=== PATIENT | female | born 1980 | race African-American/Black ===

== ENCOUNTER 2019-06-06 01:41 | Emergency (ER) | payer SELFPAY ==
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
[2019-06-06 05:18] VITALS: BP 132/68
== END 2019-06-06 04:30 | disposition home or self-care (01) ==
LOC: ER 01:41
DX: J45.909 Unspecified asthma, uncomplicated (principal); F41.9 Anxiety disorder, unspecified
CPT/HCPCS: 99283

== ENCOUNTER 2019-06-24 01:43 | Emergency (ER) | payer MEDICAID, OTHER ==
[2019-06-24] MEDS ORDERED: ACETAMINOPHEN 325 MG TABLET PO ONE (01:59)
--- NOTE | 2019-06-24 02:24 | ER Document Report ---
ED General - General Chief Complaint: Toothache Stated Complaint: RIGHT SIDE TOOTHACHE,EAR ACHE,HEADACHE Time Seen by Provider: 06/24/19 02:24 TRAVEL OUTSIDE OF THE [place] IN LAST 30 DAYS: No - HPI Patient complains to provider of: dental pain Notes: 3 days of right upper dental pain at site of failed dental extraction done years ago in [place] no fever, facial swelling, difficulty swallowing, visual changes - Related Data Allergies/Adverse Reactions: kelly Allergy (Intermediate, Verified 06/24/19 01:53) bee venom protein (honey bee) Allergy (Verified 06/24/19 01:53) Past Medical History - Social History Smoking Status: Current Every Day Smoker Frequency of alcohol use: Social Drug Abuse: None Family History: Reviewed & Not Pertinent Patient has suicidal ideation: No Patient has homicidal ideation: No Pulmonary Medical History: Reports: Hx Asthma Neurological Medical History: Reports: Hx Migraine Psychiatric Medical History: Reports: Hx Anxiety, Hx Bipolar Disorder, Hx Depression Past Surgical History: Reports: Hx Gynecologic Surgery, Hx Orthopedic Surgery - Immunizations Immunizations up to date: Yes Hx Diphtheria, Pertussis, Tetanus Vaccination: Yes Review of Systems - Review of Systems Constitutional: No symptoms reported EENT: Dental problem Cardiovascular: No symptoms reported Respiratory: No symptoms reported Gastrointestinal: No symptoms reported Genitourinary: No symptoms reported Female Genitourinary: No symptoms reported Musculoskeletal: No symptoms reported Skin: No symptoms reported Hematologic/Lymphatic: No symptoms reported Neurological/Psychological: No symptoms reported Physical Exam - Vital signs Vitals: Temp Pulse Resp BP 97.8 F 106 H 16 134/89 H 06/24/19 01:44 06/24/19 01:44 06/24/19 01:44 06/24/19 01:44 Interpretation: Normal - General General appearance: Appears well, Alert - HEENT Head: Normocephalic, Atraumatic Eyes: Normal Pupils: PERRL Teeth diagram: 1 - gumline erythema with partial tooth present - Respiratory Respiratory status: No respiratory distress Chest status: Nontender Breath sounds: Normal Chest palpation: Normal - Cardiovascular Rhythm: Regular Heart sounds: Normal auscultation Murmur: No - Abdominal Inspection: Normal Distension: No distension Bowel sounds: Normal Tenderness: Nontender Organomegaly: No organomegaly - Back Back: Normal, Nontender - Extremities General upper extremity: Normal inspection, Nontender, Normal color, Normal ROM, Normal temperature General lower extremity: Normal inspection, Nontender, Normal color, Normal ROM, Normal temperature, Normal weight bearing. No: Angie's sign - Neurological Neuro grossly intact: Yes Cognition: Normal Orientation: AAOx4 Annie Coma Scale Eye Opening: Spontaneous [place] Coma Scale Verbal: Oriented [place] Coma Scale Motor: Obeys Commands [place] Coma Scale Total: 15 Speech: Normal Motor strength normal: LUE, RUE, LLE, RLE Sensory: Normal - Psychological Associated symptoms: Normal affect, Normal mood - Skin Skin Temperature: Warm Skin Moisture: Dry Skin Color: Normal Course - Re-evaluation Re-evalutation: 06/24/19 02:50 dental pain - amoxil and dental follow up recommended - Vital Signs Vital signs: Temp Pulse Resp BP Pulse Ox 97.8 F 106 H 16 134/89 H 06/24/19 01:44 06/24/19 01:44 06/24/19 01:44 06/24/19 01:44 Discharge - Discharge Clinical Impression: Pain, dental, Elevated blood pressure reading Condition: Stable Disposition: HOME, SELF-CARE Instructions: [facility], Toothache ([facility]) Additional Instructions: follow up with dentist otoniel return to ED with worsening Prescriptions: Amoxicillin Trihydrate [Amoxil 500 mg Capsule] 500 mg PO BID #14 capsule Referrals: DUONG FERREIRA MD [[facility]] - Follow up as needed
[2019-06-24] MEDS ORDERED: AMOXICILLIN TRIHYDRATE 500 MG CAPSULE PO ONE (02:45)
[2019-06-24] MEDS ORDERED: HYDROCODONE/ACETAMINOPHEN 5-325 MG TABLET PO ONE (03:12)
[2019-06-24 03:22] VITALS: BP 130/78
== END 2019-06-24 03:21 | disposition home or self-care (01) ==
LOC: ER 01:43
DX: K08.89 Other specified disorders of teeth and supporting structures (principal); R03.0 Elevated blood-pressure reading, without diagnosis of hypertension; J45.909 Unspecified asthma, uncomplicated; F17.200 Nicotine dependence, unspecified, uncomplicated; Z91.018 Allergy to other foods; Z91.030 Bee allergy status

== ENCOUNTER 2019-11-12 19:32 | Emergency (ER) | payer MEDICAID, OTHER ==
[2019-11-12 19:40] VITALS: BP 135/77
[2019-11-12] MEDS ORDERED: PENICILLIN V POTASSIUM 500 MG TABLET PO ONE (19:50)
--- NOTE | 2019-11-12 19:51 | ER Document Report ---
HPI - HPI Patient complains to provider of: dental pain Time Seen by Provider: 11/12/19 19:36 Onset: Last week Onset/Duration: Sudden, Persistent Quality of pain: Achy Severity: Severe Pain Level: 4 Context: 39-year-old female presents with complaints of right upper dental pain for the past week. Reports increased pain with food and very sensitive to heat or cold. Denies fever vomiting diarrhea. Has taken Tylenol Motrin without relief of symptoms. Associated Symptoms: None Exacerbated by: Food Relieved by: Denies Similar symptoms previously: Yes Recently seen / treated by doctor: No - REPRODUCTIVE Reproductive: DENIES: : Past Medical History - General Information source: Patient Last Menstrual Period: just finished - Social History Smoking Status: Current Every Day Smoker Cigarette use (# per day): Yes Frequency of alcohol use: None Drug Abuse: None Occupation: none Lives with: Family Family History: Reviewed & Not Pertinent Patient has suicidal ideation: No Patient has homicidal ideation: No Pulmonary Medical History: Reports: Hx Asthma Neurological Medical History: Reports: Hx Migraine Psychiatric Medical History: Reports: Hx Anxiety, Hx Bipolar Disorder, Hx Depression Past Surgical History: Reports: Hx Gynecologic Surgery, Hx Orthopedic Surgery - Immunizations Immunizations up to date: Yes Hx Diphtheria, Pertussis, Tetanus Vaccination: Yes Vertical Provider Document - CONSTITUTIONAL Agree With Documented VS: Yes Exam Limitations: No Limitations General Appearance: WD/WN, No Apparent Distress - INFECTION CONTROL TRAVEL OUTSIDE OF THE [place] IN LAST 30 DAYS: No - HEENT HEENT: Atraumatic, Normocephalic. negative: Conjuctival Injection, Pharyngeal Erythema Mouth Diagram: 1 - Patient complains of pain. Opens mouth wide no pustule, no erythema no obvious abscess. Clear voice no Nelson's no trismus - NECK Neck: Normal Inspection, Supple - RESPIRATORY Respiratory: No Respiratory Distress - MUSCULOSKELETAL/EXTREMETIES Musculoskeletal/Extremeties: ELMIRA CUELLO - NEURO Level of Consciousness: Awake, Alert, Appropriate - DERM Integumentary: Warm, Dry Course - Re-evaluation Re-evalutation: 11/12/19 20:09 Patient presents with complaints of right upper dental pain for the past week. Denies fever vomiting diarrhea. She opens her mouth wide clear voice. Will be treated with penicillin and Percocet here. Prescription for penicillin sent to [facility]. Patient was also instructed on the [facility]. She verbalized understanding to all instructions. - Vital Signs Vital signs: Temp Pulse Resp BP Pulse Ox 98.3 F 117 H 18 135/77 H 98 11/12/19 19:38 11/12/19 19:38 11/12/19 19:38 11/12/19 19:38 11/12/19 19:38 Discharge - Discharge Clinical Impression: Pain, dental Condition: Stable Disposition: HOME, SELF-CARE Instructions: [facility], Dentist, Penicillin V K ([facility]), Toothache ([facility]) Additional Instructions: *You have been evaluated for dental pain *Take medications as prescribed *Take tylenol or Ibuprofen as indicated for pain *Follow up with the [facility] Friday *Return to ED for worsening condition, changes, needs Monitor your blood pressure. Your blood pressure was elevated today. This may be because you were anxious, in pain or because you need medication. It is i mportant to follow up with your primary care provider for full evaluation. Prescriptions: Penicillin V Potassium [Penicillin Vk 500 mg Tablet] 500 mg PO BID #20 tablet Forms: Elevated Blood Pressure
[2019-11-12] MEDS ORDERED: OXYCODONE-ACETAMINOPHEN 5-325 MG TABLET PO ONE (19:53)
== END 2019-11-12 20:00 | disposition home or self-care (01) ==
LOC: ER 19:32
DX: K08.9 Disorder of teeth and supporting structures, unspecified (principal); F17.210 Nicotine dependence, cigarettes, uncomplicated
CPT/HCPCS: 99282

== ENCOUNTER 2020-06-10 00:20 | Emergency (ER) | payer MEDICAID, OTHER ==
[2020-06-10 00:54] VITALS: BP 119/76
[2020-06-10] MEDS ORDERED: HYDROCODONE/ACETAMINOPHEN 5-325 MG (6 TAB/ER DISP) PO PRN (00:56)
[2020-06-10] MEDS ORDERED: PENICILLIN V POTASSIUM 500 MG TABLET PO ONE (00:57)
[2020-06-10] MEDS ORDERED: LIDOCAINE 2% VISCOUS SOLN 15 ML UDCUP PO ONE (00:57)
--- NOTE | 2020-06-10 00:59 | ER Document Report ---
HPI - HPI Patient complains to provider of: Dental pain Time Seen by Provider: 06/10/20 00:50 Onset: Other - 2 days Onset/Duration: Persistent Quality of pain: Achy Pain Level: 5 Context: Patient complains of dental pain from a tooth that had previously been extracted although they were unable to completely remove the entire tooth. Patient denies any fever. Associated Symptoms: Other - Dental pain. denies: Fever Exacerbated by: Denies Relieved by: Denies Similar symptoms previously: Yes Recently seen / treated by doctor: No - ROS ROS below otherwise negative: Yes Systems Reviewed and Negative: Yes All other systems reviewed and negative - CONSTITUTIONAL Constitutional: DENIES: Fever - EENT Notes: Dental pain - GASTROINTESTINAL Gastrointestinal: DENIES: Nausea, Patient vomiting - REPRODUCTIVE Reproductive: DENIES: : - DERM Skin Color: Normal Skin Problems: None Past Medical History - General Information source: Patient - Social History Smoking Status: Current Every Day Smoker Frequency of alcohol use: Occasional Drug Abuse: None Occupation: None Lives with: Family Family History: Reviewed & Not Pertinent Pulmonary Medical History: Reports: Hx Asthma Neurological Medical History: Reports: Hx Migraine Psychiatric Medical History: Reports: Hx Anxiety, Hx Bipolar Disorder, Hx Depression Past Surgical History: Reports: Hx Gynecologic Surgery, Hx Orthopedic Surgery - Immunizations Immunizations up to date: Yes Hx Diphtheria, Pertussis, Tetanus Vaccination: Yes Vertical Provider Document - CONSTITUTIONAL Agree With Documented VS: Yes Exam Limitations: No Limitations General Appearance: WD/WN, No Apparent Distress - INFECTION CONTROL TRAVEL OUTSIDE OF THE [place] IN LAST 30 DAYS: No - HEENT HEENT: Atraumatic, Normocephalic Mouth Diagram: 1 - Tenderness, small visible dental fragment with mild inflammation of the gingiva, no drainable abscess, no trismus - NECK Neck: Normal Inspection, Supple - RESPIRATORY Respiratory: Breath Sounds Normal, No Respiratory Distress - CARDIOVASCULAR Cardiovascular: Regular Rhythm, No Murmur, Tachycardia - MUSCULOSKELETAL/EXTREMETIES Musculoskeletal/Extremeties: MAEW - NEURO Level of Consciousness: Awake, Alert, Appropriate Motor/Sensory: No Motor Deficit - DERM Integumentary: Warm, Dry, No Rash Course - Re-evaluation Re-evalutation: 06/10/20 00:58 Patient with dental pain, no drainable abscess, no BRIM CURLER, patient nontoxic in appearance. Patient encouraged to follow-up with dental care provider, good return precautions discussed. - Vital Signs Vital signs: Temp Pulse Resp BP Pulse Ox 98.7 F 106 H 20 119/76 97 06/10/20 00:53 06/10/20 00:53 06/10/20 00:53 06/10/20 00:53 06/10/20 00:53 Discharge - Discharge Clinical Impression: Toothache Condition: Stable Disposition: HOME, SELF-CARE Instructions: Dentist, Oral Narcotic Medication ([facility]), Penicillin V K ([facility]), Toothache ([facility]) Additional Instructions: Return immediately for any new or worsening symptoms Followup with your primary care provider, call tomorrow to make a followup appointment Follow-up with a dental care provider, call Friday for an appointment Prescriptions: Naproxen [Naprosyn 250 Nmg Tablet] 1 tab PO BID #14 tablet Penicillin V Potassium [Penicillin Vk 500 mg Tablet] 500 mg PO BID #20 tablet Referrals: [facility] [Provider Group] - Follow up as needed
== END 2020-06-10 01:25 | disposition home or self-care (01) ==
LOC: ER 00:20
DX: K08.89 Other specified disorders of teeth and supporting structures (principal); K05.10 Chronic gingivitis, plaque induced; F17.200 Nicotine dependence, unspecified, uncomplicated; J45.909 Unspecified asthma, uncomplicated
CPT/HCPCS: 99283; J3490